=== PATIENT | female | born 1980 | race Caucasian/White ===

== ENCOUNTER → 2020-09-23 08:20 | Outpatient (CLI) | payer BC, SELFPAY ==
[2020-09-23 09:55] LABS: Basophils % 0.5 % (0.1-2.0); Eosinophils # 0.1 K/mm3 (0.0-0.4); Hematocrit 48.1 % (37.0-47.0); Hemoglobin 15.8 g/dL (12.2-16.2); Lymphocytes # 2.1 K/mm3 (0.7-4.5); Lymphocytes % 29.4 % (10-50); Mean Corpuscular HGB Conc 32.9 g/dL (31.8-35.4); Mean Corpuscular Hemoglobin 31.9 pg (27.0-31.2); Mean Corpuscular Volume 96.9 fl (81-99); Mean Platelet Volume 8.7 fl (7.4-10.4); Monocytes # 0.3 K/mm3 (0.1-1.0); Monocytes % 4.3 % (1.7-9.3); Neutrophils # 4.6 K/mm3 (1.8-7.8); Neutrophils % 63.8 % (37.0-80.0); Platelet Count 237 K/mm3 (142-424); Red Blood Count 4.96 M/mm3 (4.20-5.40); Red Cell Distribution Width 12.7 % (11.5-17.5); White Blood Count 7.2 K/mm3 (4.8-10.8)
[2020-09-23 10:57] LABS: Alanine Aminotransferase 18 U/L (12-78); Albumin Level 4.5 g/dl (3.5-5.0); Albumin/Globulin Ratio 1.5 (1.1-1.8); Alkaline Phosphatase 54 U/L (38-126); Anion Gap 14.4 mEq/L (5-15); Aspartate Amino Transferase 25 U/L (14-36); Bilirubin,Total 0.6 mg/dl (0.2-1.3); Blood Urea Nitrogen 12 mg/dl (7-17); Calcium 9.9 mg/dl (8.4-10.2); Carbon Dioxide 26 mmol/L (22.0-30.0); Chloride 103 mmol/L (98-107); Chol/HDL Ratio 4.5 (1-3.5); Cholesterol 232 mg/dl (140-200); Estimated Glomerular Filt Rate 94 ml/min (>60); GFR (African American) 113 ML/MIN (>60); Glucose 93 mg/dl (74-100); HDL Cholesterol 51 mg/dl (40-60); Potassium 4.4 mmoL/L (3.5-5.1); Sodium 139 mmol/L (136-145); Total Protein,Serum 7.5 g/dl (6.3-8.2); Triglycerides 193 mg/dl (30-150); VLDL Cholesterol 39 mg/dL (0-40)
[2020-09-23 11:07] LABS: HCG Qualitative, Serum Negative (Negative)
[2020-09-23 11:08] LABS: Direct LDL Cholesterol 139.63 mg/dL (100-129)
[2020-09-23 11:14] LABS: Free Thyroxine Index 2.3 ug/dL (5.93-13.13); T4 (Thyroxine) 8.5 ug/dl (5.53-11.0); Triiodothryronine (T3) Uptake 27 % (23.5-40.5)
[2020-09-23 11:28] LABS: Thyroid Stimulating Hormone 0.83 uIU/mL (0.465-4.68)
[2020-09-24 10:50] LABS: FSH 3.4 mIU/mL (.)
[2020-09-24 18:00] LABS: Rapid Plasma Reagin Ab Titer Non Reactive (NonRea<1:1)
[2020-09-25 08:08] LABS: Hep A Ab, IgM Negative (Negative); Hepatitis B Core Antibody IgM Negative (Negative); Hepatitis B Surface Antigen Negative (Negative)
[2020-09-25 15:15] LABS: HIV Screen 4th Generation wRfx Non Reactive (Non Reactive); Hepatitis C Antibody <0.1 s/co ratio (0.0-0.9)
[2020-09-25 15:16] LABS: HSV 2 IgG, Type Spec <0.91 index (0.00-0.90)
[2020-10-04 10:34] LABS: 1,25 Dihydroxy Vitamin D 56 pg/mL (.); 1,25-Dihydroxy, Vitamin D-2 <10 pg/mL (.); 1,25-Dihydroxy, Vitamin D-3 55 pg/mL (.)
== END ==
PROVIDERS: Visit Provider Nurse Practitioner Obstetrics & Gynecology
DX: Z01.419 Encounter for gynecological examination (general) (routine) without abnormal findings (principal); R53.82 Chronic fatigue, unspecified; Z72.51 High risk heterosexual behavior
CPT/HCPCS: 36415; 80053; 80061; 80074; 82652; 82670; 83001; 83002; 84436; 84443; 84479; 84703; 85025; 86592; 86695; 86703; 86790; G0432

== ENCOUNTER → 2021-02-20 12:28 | Outpatient (CLI) | payer BC, SELFPAY ==
--- NOTE | 2021-02-20 12:33 | XR_ITS ---
PROCEDURE: XR FOOT WT BEARING LT 3V CLINICAL INDICATION: pain COMPARISON: CR FTR3 FOOT-RT-3 VIEWS from 08/06/2014 CR FTR3 FOOT-RT-3 VIEWS from 08/23/2014 FINDINGS: No fracture or dislocation. No lytic or blastic change. There is normal mineralization. The joint spaces are well-preserved. No significant degenerative/arthritic changes. No erosive changes evident. Other findings:None. IMPRESSION: No acute findings. Dictated by: Albino Funes MD 02/20/2021 13:48 Albino Funes MD in [place] 02/20/2021 13:48
--- NOTE | 2021-02-20 12:33 | XR_ITS ---
PROCEDURE: XR ANKLE WT BEARING LT MIN 3V CLINICAL INDICATION: pain COMPARISON: CR ANKR3 ANKLE-RT-3 VIEWS from 08/06/2014 FINDINGS: Bones: No fracture or dislocation. No lytic or blastic change. There is normal mineralization. Joints: The joint spaces are well-preserved. No significant degenerative/arthritic changes. No erosive changes evident. Other findings:None. IMPRESSION: No acute findings. Dictated by: Albino Funes MD 02/20/2021 13:48 Albino Funes MD in [place] 02/20/2021 13:48
--- NOTE | 2021-02-20 12:33 | XR_ITS ---
PROCEDURE: XR ANKLE WT BEARING RT MIN 3V CLINICAL INDICATION: pain COMPARISON: CR ANKR3 ANKLE-RT-3 VIEWS from 08/06/2014 FINDINGS: Bones: No fracture or dislocation. No lytic or blastic change. There is normal mineralization. Joints: The joint spaces are well-preserved. No significant degenerative/arthritic changes. No erosive changes evident. Other findings:There is minimal hypertrophic change of the neck of the talus anteriorly. IMPRESSION: No acute findings. Dictated by: Albino Funes MD 02/20/2021 13:41 Albino Funes MD in [place] 02/20/2021 13:41
--- NOTE | 2021-02-20 12:33 | XR_ITS ---
PROCEDURE: XR FOOT WT BEARING RT 3V CLINICAL INDICATION: pain COMPARISON: CR FTR3 FOOT-RT-3 VIEWS from 08/06/2014 CR FTR3 FOOT-RT-3 VIEWS from 08/23/2014 FINDINGS: No fracture or dislocation. No lytic or blastic change. There is normal mineralization. Minimal hypertrophic change along the neck of the talus anteriorly and minimal spurring along the anterior and proximal aspect of the navicular. Normal alignment. Other findings:None. IMPRESSION: Mild degenerative changes not significantly changed Dictated by: Albino Funes MD 02/20/2021 13:44 Albino Funes MD in [place] 02/20/2021 13:44
== END ==
PROVIDERS: PCP Family Medicine; Visit Provider Podiatrist
DX: M25.572 Pain in left ankle and joints of left foot (principal); M25.571 Pain in right ankle and joints of right foot
CPT/HCPCS: 73610; 73630

== ENCOUNTER → 2022-04-13 10:14 | Outpatient (CLI) | payer BC, OTHER, SELFPAY ==
[2022-04-13 11:38] LABS: Basophils % 0.3 % (0.1-2.0); Eosinophils # 0.1 K/mm3 (0.0-0.4); Eosinophils % 1.3 % (0.1-12.0); Hemoglobin 13.5 g/dL (12.2-16.2); Lymphocytes # 1.8 K/mm3 (0.7-4.5); Lymphocytes % 22.8 % (10-50); Mean Corpuscular HGB Conc 33.9 g/dL (31.8-35.4); Mean Corpuscular Hemoglobin 31.1 pg (27.0-31.2); Mean Corpuscular Volume 91.7 fl (81-99); Mean Platelet Volume 8.5 fl (7.4-10.4); Monocytes # 0.4 K/mm3 (0.1-1.0); Neutrophils # 5.6 K/mm3 (1.8-7.8); Neutrophils % 70.6 % (37.0-80.0); Platelet Count 222 K/mm3 (142-424); Red Blood Count 4.36 M/mm3 (4.20-5.40); Red Cell Distribution Width 12.2 % (11.5-17.5)
[2022-04-13 12:14] LABS: Alanine Aminotransferase 13 U/L (12-78); Albumin/Globulin Ratio 1.7 (1.1-1.8); Alkaline Phosphatase 49 U/L (38-126); Anion Gap 9.1 mEq/L (5-15); Aspartate Amino Transferase 19 U/L (14-36); Bilirubin,Total 0.8 mg/dl (0.2-1.3); Blood Urea Nitrogen 14 mg/dl (7-17); Calcium 9.1 mg/dl (8.4-10.2); Carbon Dioxide 27 mmol/L (22.0-30.0); Chloride 106 mmol/L (98-107); Chol/HDL Ratio 4.3 (1-3.5); Cholesterol 165 mg/dl (140-200); Estimated Glomerular Filt Rate 111 ml/min (>60); GFR (African American) 135 ML/MIN (>60); Globulin 2.4 g/dL (1.3-3.2); Glucose 85 mg/dl (74-100); HDL Cholesterol 38 mg/dl (40-60); Potassium 4.1 mmoL/L (3.5-5.1); Sodium 138 mmol/L (136-145); Total Protein,Serum 6.4 g/dl (6.3-8.2); Triglycerides 103 mg/dl (30-150); VLDL Cholesterol 21 mg/dL (0-40)
[2022-04-13 12:25] LABS: Direct LDL Cholesterol 95.76 mg/dL (100-129)
[2022-04-13 12:29] LABS: 25-OH Vitamin D, Total 42.7 ng/mL (30-100)
[2022-04-13 12:45] LABS: Thyroid Stimulating Hormone 0.68 uIU/mL (0.465-4.68)
== END ==
PROVIDERS: PCP Family Medicine; Visit Provider Family Medicine
DX: G43.909 Migraine, unspecified, not intractable, without status migrainosus (principal); E55.9 Vitamin D deficiency, unspecified; R63.4 Abnormal weight loss
CPT/HCPCS: 36415; 80053; 80061; 82306; 84443; 85025

== ENCOUNTER → 2022-07-05 08:00 | Outpatient (CLI) | payer BC, SELFPAY ==
[2022-07-05 09:39] LABS: Basophils % 0.5 % (0.1-2.0); Eosinophils # 0.1 K/mm3 (0.0-0.4); Eosinophils % 1.4 % (0.1-12.0); Hematocrit 39.9 % (37.0-47.0); Hemoglobin 13.2 g/dL (12.2-16.2); Lymphocytes # 1.3 K/mm3 (0.7-4.5); Lymphocytes % 25.9 % (10-50); Mean Corpuscular HGB Conc 33.1 g/dL (31.8-35.4); Mean Corpuscular Volume 96.7 fl (81-99); Mean Platelet Volume 8.9 fl (7.4-10.4); Monocytes # 0.2 K/mm3 (0.1-1.0); Monocytes % 4.6 % (1.7-9.3); Neutrophils # 3.3 K/mm3 (1.8-7.8); Neutrophils % 67.6 % (37.0-80.0); Platelet Count 246 K/mm3 (142-424); Red Blood Count 4.13 M/mm3 (4.20-5.40); Red Cell Distribution Width 12.5 % (11.5-17.5); White Blood Count 4.9 K/mm3 (4.8-10.8)
[2022-07-05 10:36] LABS: Chloride 103 mmol/L (98-107); Potassium 4.6 mmoL/L (3.5-5.1); Sodium 139 mmol/L (136-145)
[2022-07-05 10:39] LABS: Alanine Aminotransferase 17 U/L (12-78); Albumin Level 4.1 g/dl (3.5-5.0); Albumin/Globulin Ratio 1.9 (1.1-1.8); Alkaline Phosphatase 37 U/L (38-126); Anion Gap 14.6 mEq/L (5-15); Aspartate Amino Transferase 24 U/L (14-36); Bilirubin,Total 0.7 mg/dl (0.2-1.3); Blood Urea Nitrogen 16 mg/dl (7-17); Carbon Dioxide 26 mmol/L (22.0-30.0); Cholesterol 188 mg/dl (140-200); Estimated Glomerular Filt Rate 93 ml/min (>60); GFR (African American) 112 ML/MIN (>60); Globulin 2.2 g/dL (1.3-3.2); Total Protein,Serum 6.3 g/dl (6.3-8.2); Triglycerides 87 mg/dl (30-150); VLDL Cholesterol 17 mg/dL (0-40)
[2022-07-05 10:40] LABS: Calcium 8.8 mg/dl (8.4-10.2); Glucose 81 mg/dl (74-100); HDL Cholesterol 47 mg/dl (40-60)
[2022-07-05 10:51] LABS: Direct LDL Cholesterol 101.76 mg/dL (100-129)
[2022-07-05 10:57] LABS: Triiodothryronine (T3) Uptake 32 % (23.5-40.5)
[2022-07-05 10:58] LABS: T4 (Thyroxine) 6.4 ug/dl (5.53-11.0)
[2022-07-05 11:11] LABS: Thyroid Stimulating Hormone 0.52 uIU/mL (0.465-4.68)
[2022-07-06 10:10] LABS: Rapid Plasma Reagin Ab Titer Non Reactive (NonRea<1:1)
[2022-07-12 04:10] LABS: 1,25 Dihydroxy Vitamin D 44 pg/mL (.); 1,25-Dihydroxy, Vitamin D-2 <10 pg/mL (.); 1,25-Dihydroxy, Vitamin D-3 41 pg/mL (.)
[2022-07-31 11:53] LABS: FSH 3.4
[2022-07-31 11:54] LABS: Hep A Ab, IgM NEGATIVE; Hepatitis B Core Antibody IgM NEGATIVE; Hepatitis B Surface Antigen NEGATIVE; Hepatitis C Antibody <0.1
[2022-07-31 11:55] LABS: HIV Screen 4th Generation wRfx NON REACTIVE
== END ==
PROVIDERS: PCP Family Medicine; Visit Provider Nurse Practitioner Obstetrics & Gynecology
DX: Z00.00 Encounter for general adult medical examination without abnormal findings (principal); Z72.51 High risk heterosexual behavior; E66.9 Obesity, unspecified; Z68.31 Body mass index [BMI] 31.0-31.9, adult; Z11.4 Encounter for screening for human immunodeficiency virus [HIV]
CPT/HCPCS: 36415; 80053; 80061; 80074; 82652; 82670; 83001; 83002; 84436; 84443; 84479; 85025; 86592; 86703; G0432

== ENCOUNTER → 2023-08-26 11:44 | Outpatient (CLI) | payer OTHER, SELFPAY | PROVIDERS: PCP Family Medicine; Visit Provider Nurse Practitioner Family | DX: B34.9 Viral infection, unspecified (principal) | CPT/HCPCS: 87807 ==

== ENCOUNTER 2025-01-14 07:16 | Outpatient (CLI) | payer OTHER, SELFPAY ==
[2025-01-14 08:17] LABS: Alanine Aminotransferase 18 U/L (12-78); Albumin Level 3.8 g/dl (3.5-5.0); Albumin/Globulin Ratio 1.5 (1.1-1.8); Alkaline Phosphatase 57 U/L (38-126); Anion Gap 6.3 mEq/L (5-15); Aspartate Amino Transferase 20 U/L (14-36); Bilirubin,Total 0.3 mg/dl (0.2-1.3); Blood Urea Nitrogen 11 mg/dl (7-17); Calcium 9.7 mg/dl (8.4-10.2); Carbon Dioxide 28 mmol/L (22.0-30.0); Chloride 110 mmol/L (98-107); Chol/HDL Ratio 4.4 (1-3.5); Cholesterol 222 mg/dl (140-200); Estimated Glomerular Filt Rate 92 ml/min (>60); GFR (African American) 111 ML/MIN (>60); Globulin 2.6 g/dL (1.3-3.2); Glucose 96 mg/dl (74-100); HDL Cholesterol 51 mg/dl (40-60); Potassium 4.3 mmoL/L (3.5-5.1); Sodium 140 mmol/L (136-145); Total Protein,Serum 6.4 g/dl (6.3-8.2); Triglycerides 117 mg/dl (30-150); VLDL Cholesterol 23 mg/dL (0-40)
[2025-01-14 08:27] LABS: Direct LDL Cholesterol 134.36 mg/dL (100-129)
[2025-01-14 08:33] LABS: 25-OH Vitamin D, Total 29.8 ng/mL (30-100)
[2025-01-14 10:18] LABS: Iron 47 ug/dL (37-170)
== END 2025-01-14 23:59 | disposition home or self-care (01) ==
PROVIDERS: PCP Physician Assistant; Visit Provider Physician Assistant
DX: Z13.220 Encounter for screening for lipoid disorders (principal); G43.909 Migraine, unspecified, not intractable, without status migrainosus; E55.9 Vitamin D deficiency, unspecified; E61.1 Iron deficiency
CPT/HCPCS: 36415; 80053; 80061; 82306; 83540; 84443

== ENCOUNTER 2025-05-18 09:35 | Outpatient (CLI) | payer OTHER, SELFPAY ==
--- OUTSIDE RECORDS SUMMARY | 2025-01-13 06:15 | XMS_ITS ---
Author Organization [facility] Address [address] [place] [id number] Care Team Providers Care Tribal Judge Name Role Phone Allison Craft Primary Care Provider Neetu Crain Unavailable [phone] Allergies No Known Allergies Results Component Value Reference Range Notes CBC Fingerstick (in house) Reviewed date:01/13/2025 01:23:07 PM Interpretation: Performing Lab: Notes/Report: wbc 10.9 3.5 - 10 lym 14.8 15 - 50 mid 4.5 2 - 15 gran 80.7 35 - 80 rbc 4.81 3.5 - 5.5 hgb 14.3 11.5 - 16.5 hct 43.2 35 - 55 mcv 90.0 75 - 100 mch 29.8 25 - 35 mchc 33.1 31 - 38 plat 231 100 - 400 H-TSH Reviewed date:01/14/2025 02:09:07 PM Interpretation: Performing Lab: Notes/Report: TSH 1.00 0.465-4.68 uIU/mL H-VITAMIN D Reviewed date:01/14/2025 02:09:07 PM Interpretation: Performing Lab: Notes/Report: TVITD 29.8 30-100 ng/mL Deficient <20 ng/mL Insufficient 20-30 ng/mL Sufficient 30-100 ng/mL Potential Toxicity >100 ng/mL H-Lipid Panel Reviewed date:01/14/2025 02:09:07 PM Interpretation: Performing Lab: Notes/Report: Patient Fasting? Y TRIG 117 30-150 mg/dl CHOL 222 140-200 mg/dl DLDL 134.36 100-129 mg/dL VLDL 23 0-40 mg/dL HDL 51 40-60 mg/dl CHLHDL 4.4 1-3.5 H-CMP Reviewed date:01/14/2025 02:09:07 PM Interpretation: Performing Lab: Notes/Report: NA 140 136-145 mmol/L K 4.3 3.5-5.1 mmoL/L CL 110 98-107 mmol/L CO2 28 22.0-30.0 mmol/L GAP 6.3 5-15 mEq/L BUN 11 7-17 mg/dl CREATT 0.70 0.52-1.04 mg/dl GFRAA 111 >60 ML/MIN EGFR 92 >60 ml/min GLU 96 74-100 mg/dl CA 9.7 8.4-10.2 mg/dl BILIT 0.3 0.2-1.3 mg/dl AST 20 14-36 U/L ALT 18 12-78 U/L TP 6.4 6.3-8.2 g/dl ALB 3.8 3.5-5.0 g/dl GLOB 2.6 1.3-3.2 g/dL AGRATIO 1.5 1.1-1.8 ALP 57 38-126 U/L H-Iron Reviewed date:01/14/2025 02:09:07 PM Interpretation: Performing Lab: Notes/Report: FE 47 37-170 ug/dL REASON FOR VISIT med check Medications Medication SIG (Take, Route, Frequency, Duration) Notes Start Date End Date Status Bromfed DM 2-30-10 MG/5ML 5-10 mL Orally four times a day, prn 01/13/2025 Active SUMAtriptan Succinate 100 MG TAKE ONE TABLET BY MOUTH AT LEAST 2 HOURS BETWEEN DOSES NEEDED TWICE DAILY Orally once daily, prn Active Cefdinir 300 MG 1 cap(s) Orally Two times a day; Duration: 10 days 01/13/2025 Active tiZANidine HCl 4 MG Take 2 tablets by mo uth twice daily; Duration: 90 days Active hydrOXYzine Pamoate 25 MG Take 1 capsule by mouth three times daily as needed; Duration: 20 days Active risperiDONE 1 MG 1 tab(s) Orally bid Active ZyrTEC Allergy 10 MG 1 tablet Orally Once a day Active Magnesium Oxide 400 MG 1 tab(s) orally once a day Active Vitamin D (Ergocalciferol) 1.25 MG (54107 UT) 1 cap(s) orally once a month Active Multivitamin - 1 tab(s) orally once a day Active Albuterol Sulfate HFA 108 (90 Base) MCG/ACT 1 puff as needed Inhalation every 4 hrs, prn 01/13/2025 Active Invega Sustenna 234 MG/1.5ML 1.5 mL Intramuscular Active Vital Signs Blood pressure systolic 120 mm Hg 01/14/20 25 Blood pressure diastolic 86 mm Hg 025 Heart Rate 93 /min 01/13/2025 Height 65 in 01/13/2025 Weight 213.8 lbs 01/13/2025 BMI 35.57 kg/m2 01/13/2025 Encounters Encounter Location Date Provider Diagnosis [facility] [address] [place], [place] [id number] 01/13/2025 Neetu Crain Acute URI J06.9 ; Bronchitis J40 ; Screening, lipid Z13.220 ; Migraine headache G43.909 ; Generalized anxiety disorder F41.1 ; Lipid screening Z13.220 ; Vitamin D deficiency E55.9 ; Iron deficiency E61.1 and 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 Assessments Encounter Date Diagnosis (ICD Code) Assessment Notes Treatment Notes Treatment Clinical Notes Section Notes 01/13/2025 Acute URI (ICD-10 - J06.9) 01/13/2025 Bronchitis (ICD-10 - J40) 01/13/2025 Screening, lipid (ICD-10 - Z13.220) 01/13/2025 Migraine headache (ICD-10 - G43.909) 01/13/2025 Generalized anxiety disorder (ICD-10 - F41.1) 01/13/2025 Lipid screening (ICD-10 - Z13.220) 01/13/2025 Vitamin D deficiency (ICD-10 - E55.9) 01/13/2025 Iron deficiency (ICD-10 - E61.1) 01/13/2025 Fibromyositis (ICD-10 - M79.7) Plan Of Treatment Medication Medication Name Sig Start Date Stop Date Notes Bromfed DM 2-30-10 MG/5ML 5-10 mL Orally four times a day, prn 01/13/2025 SUMAtriptan Succinate 100 MG TAKE ONE TA BLET BY MOUTH AT LEAST 2 HOURS BETWEEN DOSES NEEDED TWICE DAILY Orally once daily, prn Cefdinir 300 MG 1 cap(s) Orally Two times a day; Duration: 10 days 01/13/2025 tiZANidine HCl 4 MG Take 2 tablets by [facility] twice daily; Duration: 90 days hydrOXYzine Pamoate 25 MG Take 1 capsule by mouth three times daily as needed; Duration: 20 days Albuterol Sulfate HFA 108 (9 0 Base) MCG/ACT 1 puff as needed Inhalation every 4 hrs, prn 01/13/2025 Next Appt Details Follow Up: via phone to repo rt test results, Reason: Provider Name:Neetu Scott y, 05/18/2025 09:00:00 AM, [address] [facility] [address], [place], [id number], Progress Notes * LILIAN DUENAS ANNDOB:[birth year] (44 yo F)Acc No.[id number]:01/13/2025 Progress Notes Patient: LILIAN EDMOND Provider: HALEY Negron :1980 A ge:44 Y S ex:Female Date:01/13/2025 Address:[place] [address], [facility], [place] [id number] Pcp:Allison Craft Subjective: * Chief Complaints: * 1 . Med check. * HPI: H PI: 44 year old female presents with c/o Patient is here today for?Pt is here today for a medication check and refills. Pt sts the last check up she had she was suppose to have lab work, and sts she would like that done today. E NT/respiratory: c/o cough P t sts she has been coughing and feeling like she has a cold. Pt sts this morning she was coughing up white colored phlem. c/o nasal congestion P t sts she did get tested last week for flu and covid and sts they came back negative. Denies : sore throat. D enies : Fever. * ROS: D ERMATOLOGY: no R karla. n o H hailey. G ASTROENTEROLOGY: no N ausea. n o V omiting. n o D iarrhea.? U ROLOGY: no D ifficulty urinating. n o B lood in urine. * Medical History: M igraine Headache, Miscarriage 2009. * Surgical History: B ilateral CTS/ Dr. Gomez 09/2019. * Hospitalization/Major Diagno stic Procedure: H hailey- [facility] ER 10/30/2013, Restless Legs- [facility] ER 05/2014, Fell in [facility] ER 07/08/2020. * Family History: F ather: alive, diabetes. M other: alive. P aternal Grand Father: , diabetes.?Paternal Grand Mother: alive. M aternal Grand Father: . M aternal Grand Mother: alive, hypertension, diabetes. 1 brother(s) , 3 sister(s) . . Sister with cervical cancer. * Social History: C URRENT TOBACCO USE S moking Status: Patient does NOT smoke. C affeine: yes, frequency:. Exercise: no. Home smoke detector use: yes. Marital Status: Single. 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 Past smoking status: no. Recreational drug use: no. Alcohol: Type: , Frequency: ,Years: , Determination:. Sexually active: yes. * Medications: T aking Invega Sustenna 234 MG/1.5ML Suspension Prefilled Syringe 1.5 mL Intramuscular , Taking risperiDONE 1 MG Tablet 1 tab(s) Orally bid , Taking ZyrTEC Allergy 10 MG Tablet 1 tablet Orally Once a day , Taking Vitamin D (Ergocalciferol) 1.25 MG (45557 UT) Capsule 1 cap(s) orally once a month , Taking Multivitamin - Tablet 1 tab(s) orally once a day , Taking Magnesium Oxide 400 MG Tablet 1 tab(s) orally once a day , Taking tiZANidine HCl 4 MG Tablet Take 2 tablets by mouth twice daily , Taking SUMAtriptan Succinate 100 MG Tablet TAKE ONE TABLET BY MOUTH AT LEAST 2 HOURS BETWEEN DOSES NEEDED TWICE DAILY , Taking hydrOXYzine Pamoate 25 MG Capsule Take 1 capsule by mouth three times daily as needed , Medication List reviewed and reconciled with the patient * Allergies: N .K.D.A. Objective: * Vitals: W t: 213.8, Temp: 97.6, BP: 120/86, HR: 93, O2 Sat: 95% on RA, Nurse: benson, Ht: 65, BMI:35.57. * Examination: G eneral Examination: General Appearance: N AD. H EENT: s clera and conjunctiva clear, PERRLA, TM's normal, translucent, nose congested. O ral cavity: n o lesions, mucosa moist and WNL, no erythema. N aron: s upple, no lymphadenopathy. C hest: n ormal shape and expansion. H eart: R SR. L ungs: b ilateral wheezes, no rales. A bdomen: b owel sounds present , soft and nontender. N eurologic Exam: I ntact, gait normal. S kin: n ormal, no rash. P eripheral pulses: n ormal (2+) bilaterally. E xtremities: n o leg edema. Assessment: * Assessment: 1. A cute URI - J06.9 (Primary) 2 . B ronchitis - J40 3 .?Screening, lipid - Z13.220 4 . M igraine headache - G43.909 5 . G eneralized anxiety disorder - F41.1 6 . L ipid screening - Z13.220 7. V itamin D deficiency - E55.9 8 . I dustin deficiency - E61.1? 9. 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 2.?Bronchitis? Start Bromfed DM Syrup, 2-30-10 MG/5ML, 5-10 mL, Orally, four times a day, prn, 240 mL, Refills 1; Start Albuterol Sulfate HFA Aerosol Solution, 108 (90 Base) MCG/ACT, 1 puff as needed, Inhalation, every 4 hrs, prn, 1, Refills 1.?? 3.?Screening, lipid?LAB: H-Lipid Panel (Collection Date & Time - 01/14/2025 07:20 AM)* Value Reference Range T RIG 117 30-150 - mg/dl * C HOL 222 H 140-200 - mg/dl * D LDL 134.36 H 100-129 - mg/dL * V LDL 23 0-40 - mg/dL * H DL 51 40-60 - mg/dl * C HLHDL 4.4 H 1-3.5 - * Neetu Crain 01/14/2025 02 :09:01 PM >see TE 4.?Migraine headache? Refill SUMAtriptan Succinate Tablet, 100 MG, TAKE ONE TABLET BY MOUTH AT LEAST 2 HOURS BETWEEN DOSES NEEDED TWICE DAILY, Orally, once daily, prn, 9, Refills 5.?LAB: H-TSH (Collection Date & Time - 01/14/2025 07:20 AM)* Value Reference Range T SH 1.00 0.465-4.68 - uIU/mL * Neetu Crain 01/14/2025 02 :09:01 PM >see TE ?LAB: H-CMP (Collection Date & Time - 01/14/2025 07:20 AM)* Value Reference Range N A 140 136-145 - mmol/L * K 4.3 3.5-5.1 - mmoL/L * C L 110 H 98-107 - mmol/L * C O2 28 22.0-30.0 - mmol/L * G AP 6.3 5-15 - mEq/L * B UN 11 7-17 - mg/dl * C REATT 0.70 0.52-1.04 - mg/dl * G FRAA 111 >60 - ML/MIN * E GFR 92 >60 - ml/min * G ANAYELI 96 74-100 - mg/dl * C A 9.7 8.4-10.2 - mg/dl * B ILIT 0.3 0.2-1.3 - mg/dl * A ST 20 14-36 - U/L * A LT 18 12-78 - U/L * T P 6.4 6.3-8.2 - g/dl * A LB 3.8 3.5-5.0 - g/dl * G LOB 2.6 1.3-3.2 - g/dL * A GRATIO 1.5 1.1-1.8 - * A LP 57 38-126 - U/L * Breann Neetu Erna 01/14/2025 02 :09:01 PM >see TE 5.?Generalized anxiety disorder? Refill hydrOXYzine Pamoate Capsule, 25 MG, Take 1 capsule by mouth three times daily as needed, 20 days, 60 Capsule, Refills 5.??6.?Vitamin D deficiency?LAB: H-VITAMIN D (Collection Date & Time - 01/14/2025 07:20 AM)* Value Reference Range T VITD 29.8 L 30-100 - ng/mL * Breann Neetu Umanzor 01/14/2025 02 :09:01 PM >see TE 7.?Iron deficiency?LAB: H-Iron (Collection Date & Time - 01/14/2025 07:20 AM)* Value Reference Range F E 47 37-170 - ug/dL * Breann Neetu Umanzor 01/14/2025 02 :09:01 PM >see TE 8.?Fibromyositis? Refill tiZANidine HCl Tablet, 4 MG, Take 2 tablets by mouth twice daily, 90 days, 360 Tablet, Refills 3.?? * Procedure Codes: 3 6416 CAPILLARY BLOOD DRAW, 87310 CBC WITH AUTO DIFF, 3074F SYST BP LT 130 MM HG, 3079F DIAST BP 80-89 MM HG * Follow Up: v ia phone to report test results * Images: Billing Information: * Visit Code: 67724 Office Visit, Est Pt., Level 4. * Procedure Codes: 43763 CAPILLARY BLOOD DRAW. 87113 CBC WITH AUTO DIFF. 3074F SYST BP LT 130 MM HG. 3079F DIAST BP 80-89 MM HG. * Electronic signature of HALEY Manriquez on 05/18/2025 at 09:50 AM EDT Sign off status: Pending * Provider: HALEY Negron Date: 0 01/13/2025 Generated for Printi ng/Faxing/eTransmitting on: 0 05/18/2025 09:50 AM EDT History and Physical Notes * HPI (History of Present Illness) Category Sub-Category Detail Notes Category Not es ENT/respiratory sore throat cough Pt sts she has been coughing and feeling like she has a cold. Pt sts this morning she was coughing up white colored phlem Fever nasal congestion Pt sts she did get t ested last week for flu and covid and sts they came back negative HPI Patient is here today for Pt is here today for a medication check and refills. Pt sts the last check up she had she was suppose to have lab work, and sts she would like that done today Examination Category Sub-Category Detail Notes Category Not es General Examination HEENT: sclera and c onjunctiva clear, PERRLA, TM's normal, translucent, nose congested Heart: RSR Lungs: bilateral wheezes, n o rales Abdomen: bowel sounds present , soft and nontender Extremities: no leg edema General Appearance: NAD Skin: normal, no rash Neurologic Exam: Intact, gait normal Neck: supple, no lymphaden opathy Oral cavity: no lesions, mucosa m oist and WNL, no erythema Peripheral pulses: normal (2+) bilatera lly Chest: normal shape and exp ansion
--- OUTSIDE RECORDS SUMMARY | 2025-03-30 05:30 | XMS_ITS ---
Author Organization [facility] Address [address] [place] [id number] Care Team Providers Care Sas Programmer Name Role Phone Allison Craft Primary Care Provider [phone] Neetu Crain Unavailable [phone] Allergies No Known Allergies Reason For Referral Diagnosis 1 Depression with anxi ety (F41.8) Referral Organization [facility] Referring Provider First Name Neetu Referring Provider Last Name Breann Referring Provider Speciality Physician Retail Selling Specialist Referred Provider Specialty Psychiatry General Notes Rosio Lama 2024 11:16:32 AM > [facility] Brynn 04/04/2025 10:37:54 AM > spoke with George; patient scheduled Referral Priority Routine REASON FOR VISIT Discuss Depression Medication Medications Medication SIG (Take, Route, Frequency, Duration) Notes Start Date End Date Status Albuterol Sulfate HFA 108 (90 Base) MCG/ACT 1 puff as needed Inhalation every 4 hrs, prn 01/13/2025 Active Vitamin D (Ergocalciferol) 1.25 MG (66663 UT) 1 cap(s) orally once a month Active hydrOXYzine Pamoate 25 MG Take 1 capsule by mouth three times daily as needed; Duration: 20 days Active Invega Sustenna 234 MG/1.5ML 1.5 mL Intramuscular Not-Peña ing tiZANidine HCl 4 MG Take 2 tablets by mo uth twice daily; Duration: 90 days Active risperiDONE 1 MG 1 tab(s) Orally bid Active ZyrTEC Allergy 10 MG 1 tablet Orally Onc e a day Active Multivitamin - 1 tab(s) orally once a day Active Magnesium Oxide 400 MG 1 tab(s) orally o nce a day Active SUMAtriptan Succinate 100 MG TAKE ONE TABLET BY MOUTH AT LEAST 2 HOURS BETWEEN DOSES NEEDED TWICE DAILY Orally once daily, prn Active Citalopram Hydrobromide 20 MG 1 tablet Orally Once a day; Duration: 30 days 03/30/2025 Active Problems Problem Type SNOMED Code ICD Code Onset Dates Problem Status W/U Status Risk Notes Problem Mixed anxiety and depressive disorder (277600701) Depression with anxiety (F41.8) Active confirmed Vital Signs Blood pressure systolic 126 mm Hg 03/30/20 25 Blood pressure diastolic 80 mm Hg 025 Heart Rate 86 /min 03/30/2025 Height 65 in 03/30/2025 Weight 228.6 lbs 03/30/2025 BMI 38.04 kg/m2 03/30/2025 Encounters Encounter Location Date Provider Diagnosis [place] [address] [place] [id number] 03/30/2025 Neetu Crain Depression with anxi ety F41.8 Assessments Encounter Date Diagnosis (ICD Code) Assessment Notes Treatment Notes Treatment Clinical Notes Section Notes 03/30/2025 Depression with anxiety (ICD-10 - F41.8) Will go ahead and start back on the citalopram. She would like to see [facility] behavioral health to get genetic testing. Will make referral. Plan Of Treatment Medication Medication Name Sig Start Date Stop Date Notes Citalopram Hydrobromide 20 MG 1 tablet O rally Once a day; Duration: 30 days 03/30/2025 Treatment Notes Assessment Notes Depression with anxiety Will go ahead an d start back on the citalopram. She would like to see [facility] behavioral health to get genetic testing. Will make referral. Referrals Referral Date Details 03/30/2025 03/30/2025 Next Appt Details Follow Up: 3 Weeks, Reason: Provider Name:Neetu Scott y, 05/18/2025 09:00:00 AM, [address], [place], [id number], Progress Notes * LILIAN DUENASDOB:[birth year] (44 yo F)Acc No.[id number]:03/30/2025 Progress Notes Patient: LILIAN EDMOND Provider: HALEY Negron :1980 A ge:44 Y S ex:Female Date:03/30/2025 Address: [address], [id number] Pcp:Allison Craft Subjective: * Chief Complaints: * 1 . Discuss Depression Medication. * HPI: P sychology: 44 year old female presents with c/o depression P t here to discuss depression medication. Pt states she been having trouble sleeping at times as well. She has a therapist at [facility] and they are weaning her off of her risperidone but they sent her to her PCP to start back on the citalopram and welbutrin. . * ROS: D ERMATOLOGY: no R karla. n o H hailey. G ASTROENTEROLOGY: no N ausea. n o V omiting. n o D iarrhea.? U ROLOGY: no D ifficulty urinating. n o B lood in urine. * Medical History: M igraine Headache, Miscarriage 2009. * Surgical History: B ilateral CTS/ Dr. Gomez 09/2019. * Hospitalization/Major Diagno stic Procedure: H hailey- [facility] 10/30/2013, Restless [place]s- [facility] 05/2014, Fell in [facility] ER 07/08/2020. * Family History: F [...] detector use: yes. Marital Status: Single. 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 Past smoking status: no. Recreational drug use: no. Alcohol: Type: , Frequency: ,Years: , Determination:. Sexually active: yes. * Medications: T aking risperiDONE 1 MG Tablet 1 tab(s) Orally bid , Taking ZyrTEC Allergy 10 MG Tablet 1 tablet Orally Once a day , Taking Multivitamin - Tablet 1 tab(s) orally once a day , Taking Magnesium Oxide 400 MG Tablet 1 tab(s) orally once a day , Taking SUMAtriptan Succinate 100 MG Tablet TAKE ONE TABLET BY MOUTH AT LEAST 2 HOURS BETWEEN DOSES NEEDED TWICE DAILY Orally once daily, prn , Taking tiZANidine HCl 4 MG Tablet Take 2 tablets by mouth twice daily , Taking Albuterol Sulfate HFA 108 (90 Base) MCG/ACT Aerosol Solution 1 puff as needed Inhalation every 4 hrs, prn , Taking Vitamin D (Ergocalciferol) 1.25 MG (92032 UT) Capsule 1 cap(s) orally once a month , Taking hydrOXYzine Pamoate 25 MG Capsule Take 1 capsule by mouth three times daily as needed , Not-Taking Invega Sustenna 234 MG/1.5ML Suspension Prefilled Syringe 1.5 mL Intramuscular , Medication List reviewed and reconciled with the patient * Allergies: N .K.D.A. Objective: * Vitals: W t: 228.6, Temp: 97.9, BP: 126/80, HR: 86, Nurse: suleman, Ht: 65, BMI:38.04. * Examination: P sychology: General Appearance: N AD. G rooming : a dequate.?Eye contact : richard iglesias. M ood : p lejony. H eart: R SR. L ungs: c lear to auscultation. N eurologic Exam: I ntact, gait normal. Assessment: * Assessment: 1. D epression with anxiety - F41.8 (Primary) Plan: * Treatment: * Procedure Codes: 1 036F TOBACCO NON-USER, 3074F SYST BP LT 130 MM HG, 3079F DIAST BP 80-89 MM HG, G8431 CLIN DEPRESSION SCREEN DOC positive, Modifiers: U8 * Follow Up: 3 Weeks * Images: Billing Information: * Visit Code: 33952 Office Visit, Est Pt., Level 3. * Procedure Codes: 1036F TOBACCO NON-USER. 3074F SYST BP LT 130 MM HG. 3079F DIAST BP 80-89 MM HG. G8431 CLIN DEPRESSION SCREEN DOC positive. Modifiers: U8 * Electronic signature of HALEY Manriquez on 05/18/2025 at 09:50 AM EDT Sign off status: Pending * Provider: HALEY Negron Date: 0 03/30/2025 Generated for Sixto enriquez/Sd/Katesmitting on: 0 05/18/2025 09:50 AM EDT History and Physical Notes * HPI (History of Present Illness) Category Sub-Category Detail Notes Category Not es Psychology depression Pt here to discu ss depression medication. Pt states she been having trouble sleeping at times as well. She has a therapist at [facility] and they are weaning her off of her risperidone but they sent her to her PCP to start back on the citalopram and welbutrin. Examination Category Sub-Category Detail Notes Category Not es Psychology Heart: RSR Lungs: clear to auscultatio n General Appearance: NAD Neurologic Exam: Intact, gait normal Grooming : adequate Eye contact : normal Mood : pleasant Consultation Request Notes Referral Date Referring Provider Referred Provider Not es 03/30/2025 Neetu Crain ,
--- OUTSIDE RECORDS SUMMARY | 2025-04-20 06:15 | XMS_ITS ---
[facility] Organization [facility] Address [address] [place] [id number] Care Team Providers Care Bobbin Collector Name Role Phone Allison Craft Primary Care Provider XiangNeetu page Unavailable [phone] Allergies No Known Allergies Results Component Value Reference Range Notes Genesight testing Reviewed date:05/06/2025 05:45:57 PM Interpretation:See Report Performing Lab: Notes/Report: See Report REASON FOR VISIT 3 week f/u due to have mamm please address Medications Medication SIG (Take, Route, Frequency, Duration) Notes Start Date End Date Status Vitamin D (Ergocalciferol) 1.25 MG (38343 UT) 1 cap(s) orally once a month Active Albuterol Sulfate HFA 108 (90 Base) MCG/ACT 1 puff as needed Inhalation every 4 hrs, prn 01/13/2025 Active tiZANidine HCl 4 MG Take 2 tablets by mo ut twice daily; Duration: 90 days Active Citalopram Hydrobromide 20 MG 1 tablet Orally Once a day Active SUMAtriptan Succinate 100 MG TAKE ONE TABLET BY MOUTH AT LEAST 2 HOURS BETWEEN DOSES NEEDED TWICE DAILY Orally once daily, prn Active Magnesium Oxide 400 MG 1 tab(s) orally o nce a day Active Multivitamin - 1 tab(s) orally once a day Active ZyrTEC Allergy 10 MG 1 tablet Orally Onc e a day Active Vraylar 1.5 MG 1 capsule Orally Onc e a day Active hydrOXYzine Pamoate 25 MG Take 1 capsule during the day, prn and 2 cap at bedtime Orally twice a day Active Problems Problem Type SNOMED Code ICD Code Onset Dates Problem Status W/U Status Risk Notes Problem Psychophysiologi rufino insomnia (F51.04) Active confirmed Vital Signs Blood pressure systolic 132 mm Hg 04/20/20 25 Blood pressure diastolic 80 mm Hg 025 Heart Rate 70 /min 04/20/2025 Height 65 in 04/20/2025 Weight 238 lbs 04/20/2025 BMI 39.6 kg/m2 04/20/2025 Encounters Encounter Location Date Provider Diagnosis TOPHERLakhwinderRobOdell [address] [facility] 36 [facility] [address] [place] [id number] 04/20/2025 Neetu Crain Depression with anxi ety F41.8 and Psychophysiological insomnia F51.04 Assessments Encounter Date Diagnosis (ICD Code) Assessment Notes Treatment Notes Treatment Clinical Notes Section Notes 04/20/2025 Depression with anxi ety (ICD-10 - F41.8) 04/20/2025 Psychophysiological insomnia (ICD-10 - F51.04) Plan Of Treatment Medication Medication Name Sig Start Date Stop Date Notes Citalopram Hydrobromide 20 MG 1 tablet Orally Once a day hydrOXYzine Pamoate 25 MG Take 1 capsule during the day, prn and 2 cap at bedtime Orally twice a day Next Appt Details Follow Up: 1 month, Reason: Provider Name:Neetu Erna Scott y, 05/18/2025 09:00:00 AM, [address] [facility] 36 [facility], [address], [place], [id number], Progress Notes * LILIAN DUENAS ANNDOB:[birth year] (44 yo F)Acc No.[id number]:04/20/2025 Patient: LILIAN EDMOND Provider: HALEY Negron :1980 A ge:44 Y S ex:Female Date:04/20/2025 Address: [address], [place] Pcp:Allison Craft Subjective: * Chief Complaints: * 1 . 3 week f/u due to have mamm please address. * HPI: P sychology: 44 year old female presents with c/o depression P t states she went to [facility] this morning for counseling. Pt states she is doing better. She was started on vraylar last week. Pt states she is having to take 2 hydroxyzine at night to sleep and would like rx increased.. * ROS: D ERMATOLOGY: no R karla. n o H hailey. G ASTROENTEROLOGY: no N ausea. n o V omiting. n o D iarrhea.? U ROLOGY: no D ifficulty urinating. n o B lood in urine. * Medical History: M igraine Headache, Miscarriage 2009. * Surgical History: B ilateral CTS/ Dr. Gomez 09/2019. * Hospitalization/Major Diagno stic Procedure: H hailey- [facility] ER 10/30/2013, Restless Legs- [facility] ER 05/2014, Fell in [facility] ER 07/08/2020. * Family History: F ather: [...] detector use: yes. Marital Status: Single. 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 Past smoking status: no. Recreational drug use: no. Alcohol: Type: , Frequency: ,Years: , Determination:. Sexually active: yes. * Medications: T aking Vraylar 1.5 MG Capsule 1 capsule Orally Once a day , Taking Citalopram Hydrobromide 20 MG Tablet 1 tablet Orally Once a day , Taking ZyrTEC Allergy 10 MG Tablet [...] , Taking Vitamin D (Ergocalciferol) 1.25 MG (56284 UT) Capsule 1 cap(s) orally once a month , Taking hydrOXYzine Pamoate 25 MG Capsule Take 1 capsule by mouth three times daily as needed , Discontinued Invega Sustenna 234 MG/1.5ML Suspension Prefilled Syringe 1.5 mL Intramuscular , Medication List reviewed and reconciled with the patient * Allergies: N .K.D.A. Objective: * Vitals: W t: 238, Temp: 97.6, BP: 132/80, HR: 70, Nurse: suleman, Ht: 65, BMI:39.6. * Examination: P sychology: General Appearance: N AD. G rooming : a dequate.?Eye contact : richard iglesias. M ood : p leasant. H eart: R SR. L ungs: c lear to auscultation. N eurologic Exam: I ntact, gait normal. Assessment: * Assessment: 1. D epression with anxiety - F41.8 (Primary) 2 . P sychophysiological insomnia - F51.04 Plan: * Treatment: 2.?Psychophysiological insomnia? Refill hydrOXYzine Pamoate Capsule, 25 MG, Take 1 capsule during the day, prn and 2 cap at bedtime,Orally, twice a day, 90, Refills 1.?? * Procedure Codes: 1 036F TOBACCO NON-USER, 3075F SYST BP GE 130 - 139MM HG, 3079F DIAST BP 80-89 MM HG * Follow Up: 1 month * Images: Billing Information: * Visit Code: 94304 Office Visit, Est Pt., Level 3. * Procedure Codes: 1036F TOBACCO NON-USER. 3075F SYST BP GE 130 - 139MM HG. 3079F DIAST BP 80-89 MM HG. * Electronic signature of HALEY Manriquez on 05/18/2025 at 09:50 AM EDT Sign off status: Pending * Provider: HALEY Negron Date: 0 04/20/2025 Generated for Sixto enriquez/Sd/Katlin on: 0 05/18/2025 09:50 AM EDT History and Physical Notes * HPI (History of Present Illness) Category Sub-Category Detail Notes Category Not es Psychology depression Pt states she we nt to [place] this morning for counseling. Pt states she is doing better. She was started on vraylar last week. Pt states she is having to take 2 hydroxyzine at night to sleep and would like rx increased. Examination Category Sub-Category Detail Notes Category Not es Psychology Heart: RSR Lungs: clear to auscultatio n General Appearance: NAD Neurologic Exam: Intact, gait normal Grooming : adequate Eye contact : normal Mood : pleasant
--- NOTE | 2025-05-18 09:38 | XR_ITS ---
FINAL REPORT CLINICAL HISTORY: .fall 11/09 COMPARISON: None FINDINGS: RIGHT HIP 4 views of the right hip demonstrate no acute fracture or dislocation. The joint spaces appear normal. The visualized bony structures are well aligned. No soft tissue abnormality is seen. IMPRESSION: No acute bony abnormality. Reviewed, Interpreted and Dictated by Darrell Leiva MD Transcribed by Arleth Bo Authenticated and [facility]
--- NOTE | 2025-05-18 09:38 | XR_ITS ---
FINAL REPORT TECHNIQUE: 5 views CLINICAL HISTORY: PAIN, ACUTE MIDLINE LBP W/O SCIATICA-- fall 11/10 COMPARISON: None FINDINGS: LUMBAR SPINE AP, oblique, and lateral views of the lumbar spine were obtained. There is no prior exam for comparison. There is no acute fracture or malalignment. Vertebral body height is preserved. Disc space height is preserved. No acute paraspinal abnormality. IMPRESSION: No acute process. Reviewed, Interpreted and Dictated by Darrell Leiva MD Transcribed by Arleth Bo Authenticated and [facility]
--- OUTSIDE RECORDS SUMMARY | 2025-05-18 09:50 | XMS_ITS | Patient Health Record ---
Author Organization [facility] Address [address] [place] [id number] Care Team Providers Care Platform Engineer Name Role Phone Allison Craft Primary Care Provider Neetu Crain Unavailable [phone] Allergies No Known Allergies Results Component Value Reference Range Notes Genesight testing Reviewed date:05/06/2025 05:45:57 PM Interpretation:See Report Performing Lab: Notes/Report: See Report CBC Fingerstick (in house) Reviewed date:01/13/2025 01:23:07 [...] Performing Lab: Notes/Report: FE 47 37-170 ug/dL Medications Medication SIG (Take, Route, Frequency, Duration) Notes Start Date End Date Status SUMAtriptan Succinate 100 MG TAKE ONE TABLET BY MOUTH AT LEAST 2 HOURS BETWEEN DOSES NEEDED TWICE DAILY Orally once daily, prn Active Medrol 4 MG as directed Orally 05/18/2025 Active Citalopram Hydrobromide 20 MG 1 tablet Orally Once a day Active Vitamin D (Ergocalciferol) 1.25 MG (68185 UT) 1 cap(s) orally once a month Active Albuterol Sulfate HFA 108 (90 Base) MCG/ACT 1 puff as needed Inhalation every 4 hrs, prn 01/13/2025 Active tiZANidine HCl 4 MG Take 2 tablets by mo uth twice daily; Duration: 90 days Active ZyrTEC Allergy 10 MG 1 tablet Orally Onc e a day Active Vraylar 1.5 MG 1 capsule Orally Onc e a day Active hydrOXYzine Pamoate 25 MG Take 1 capsule during the day, prn and 2 cap at bedtime Orally twice a day Active Magnesium Oxide 400 MG 1 tab(s) orally o nce a day Active Multivitamin - 1 tab(s) orally once a day Active Immunizations Vaccine Route Administration Date Status Comme nts DT, 7 YEARS OR OLDER Unknown 11/16/1996 Administered DT, 7 YEARS OR OLDER IM Intramuscular 11/28/2005 Administe red xFlu shot-36 months and older IM Intramuscular 08/10/2005 Administered Morphine 10mg/ml IM Intramuscular 05/01/2005 Administered Morphine 10mg/ml IM Intramuscular 03/24/2007 Administered Problems Problem Type SNOMED Code ICD Code Onset Dates Problem Status W/U Status Risk Notes Problem Migraine variants, not intractable (151304121) Migraine, other, without mention of intractable migraine (346.80) Active confirmed Problem Mixed anxiety and depressive disorder (124741952) Depression with anxiety (300.4) Active confirmed Problem Vitamin D deficiency (77909881) Vitamin D deficiency (E55.9) Active confirmed Problem Mixed anxiety and depressive disorder (186509542) Depression with anxiety (F41.8) Active confirmed Problem Intermenstrual bleeding - irregular (00498864) Menorrhagia with irregular cycle (N92.1) Active confirmed Problem Generalized anxiety disorder (05085137) Generalized anxiety disorder (F41.1) Active confirmed Problem Depression (672115842) Depression (F32.9) Active confirmed Problem Insomnia disorder related to another mental disorder (81677979) Psychophysiological insomnia (F51.04) Active confirmed Problem Sleep disorder (86534343) Sleep disorder (G47.9) Active confirmed Problem Migraine variant with headache (disorder) (512454706) Migraine headache (G43.909) Active confirmed Problem 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 Problem Bilateral carpal tunnel syndrome (098366706778401 01) Bilateral carpal tunnel syndrome (G56.03) Active confirmed Problem Irritable bowel syndrome (51440764) Irritable bowel syndrome with both constipation and diarrhea (K58.2) Active confirmed Vital Signs Heart Rate 66 /min 05/18/2025 Blood pressure diastolic 80 mm Hg 05/18/2025 Height 65 in 05/18/2025 Blood pressure systolic 130 mm Hg 05/18/2025 Weight 228.8 lbs 05/18/2025 BMI 38.07 kg/m2 05/18/2025 Encounters Encounter Location Date Provider Diagnosis Rachel [address] [facility] [address] [place] [id number] 01/13/2025 Neetu Crowkaylee Acute URI J06.9 ; Bronchitis J40 ; Screening, lipid Z13.220 ; Migraine headache G43.909 ; Generalized anxiety disorder F41.1 ; Lipid screening Z13.220 ; Vitamin D deficiency E55.9 ; Iron deficiency E61.1 and 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 [facility] [address] [place] [id number] 03/30/2025 Neetu Crowkaylee Depression with anxi ety F41.8 [facility] [address] [place] [id number] 04/20/2025 Neetu Crowdy Depression with anxi ety F41.8 and Psychophysiological insomnia F51.04 [facility] [address] [place] [id number] 05/18/2025 Neetu Crowkaylee Acute midline low ba ck pain without sciatica M54.50 ; Right hip pain M25.551 and Depression with anxiety F41.8 [facility] [address] [place] [id number] 04/18/2025 Allison Craft [facility] [address] [place] [id number] 01/14/2025 Neetu Xiangkaylee Generalized anxiety disorder F41.1 [facility] [address] [place] [address] [place] [id number] 05/03/2025 Allison Craft Assessments Encounter Date Diagnosis (ICD Code) Assessment Notes Treatment Notes Treatment Clinical Notes Section Notes 01/13/2025 Bronchitis (ICD-10 - J40) 01/13/2025 Acute URI (ICD-10 - J06.9) 01/14/2025 Generalized anxiety disorder (ICD-10 - F41.1) 03/30/2025 Depression with anxi ety (ICD-10 - F41.8) Will go ahead and start back on the citalopram. She would like to see [facility] behavioral health to get genetic testing. Will make referral. 04/20/2025 Depression with anxi ety (ICD-10 - F41.8) 04/20/2025 Psychophysiological insomnia (ICD-10 - F51.04) 05/18/2025 Right hip pain (ICD- 10 - M25.551) 05/18/2025 Acute midline low ba ck pain without sciatica (ICD-10 - M54.50) 05/18/2025 Depression with anxi ety (ICD-10 - F41.8) 01/13/2025 Screening, lipid (ICD-10 - Z13.220) 01/13/2025 Migraine headache (ICD-10 - G43.909) 01/13/2025 Generalized anxiety disorder (ICD-10 - F41.1) 01/13/2025 Lipid screening (ICD -10 - Z13.220) 01/13/2025 Vitamin D deficiency (ICD-10 - E55.9) 01/13/2025 Iron deficiency (ICD -10 - E61.1) 01/13/2025 Fibromyositis (ICD-1 0 - M79.7) Plan Of Treatment Pending Test Test Name Order Date X ray : Spine, lumbosacral 05/18/2025 X ray : Hip, right 05/18/2025 Next Appt Details Provider Name:Neetu Umanzor Sonia juarez, 05/18/2025 09:00:00 AM, [address] [facility] [address] [facility], [address], [place], [place], [id number], Insurance Providers Payer Name Payer Address Payer Phone Subscriber Number Group Number Insured Name Patient Relationship to Insured Coverage Start Date Coverage End Date [employer] [facility] [address] [place], [place] [id number] LILIAN DUENAS Self - patient is the insured Medications Administered Medication Instructions Date of Administration Dosage Notes Dexamethasone 12/27/2009 1CC Dexamethasone 11/01/2013 Dexamethasone 10/21/2014 1 mL Phenergan 12.5 mgs. IM 05/01/2005 25 mg Phenergan 12.5 mgs. IM 03/24/2007 stadol 08/12/2008 2 mg Vistaril 25 MGS. 08/12/2008 50 mg Medical (General) History Medical History History ICD Code Migraine Headache 2009 Surgical History Surgery Date(Month/Year) Bilateral CTS/ Dr. Gomez 09/2019 Hospitalization History Reason Date(Month/Year) Fell in [facility] ER 07/08/2020 Restless Legs- [facility] ER 05/2014 Hives- [facility] ER 10/30/2013
--- OUTSIDE RECORDS SUMMARY | 2025-05-18 09:50 | XMS_ITS | Encounter Summary ---
Author Organization Healthcare Address [address] [id number] Care Team Providers Care Cryptographic Vulnerability Analyst Name Role Phone Frederick Craft MD Primary Care Provider [phone]- [phone] Encounter Details Date Type Department Care Team (Late st Contact Info) Description 11/05/2024 Lab Requisition Formerly [facility] [address] [place] [address] Sabrina Olmos MD [address] [place], [place] [id number] Routine general medical examination at a health care facility Social History Tobacco Use Types Packs/Day Years Used Date Smoking Tobacco: Never Alcohol Use Standard Drinks/Week Comments No 0 (1 standard drink = 0.6 oz pur e alcohol) Comments Unknown Sex and Gender Information Value Date Recorded Sex Assigned at Not on file Legal Sex Female 6:51 PM EDT Gender Identity Not on file Sexual Orientation Not on file documented as of this encounter Plan of Treatment Not on file documented as of this encounter Procedures Procedure Name Priority Date/Time Associated Diagnosis Comments HEPATITIS B SURFACE ANTIGEN - [facility] Routine 11/05/2024 7:06 AM EST Routine general medical examination at a health care facility HEPATITIS C ANTIBODY WITH REFLEX TO HCV QUANT PCR - ES Routine 11/05/2024 7:06 AM EST Routine general medical examination at a health care facility HIV 1/2 ANTIBODY/ANTIGEN SCREEN W/REFLEX TO HIV 1/2 ANTIBODY DIFFERENTIATION Routine 11/05/2024 7:06 AM EST Routine general medical examination at a health care facility HIV 1/2 ANTIBODY/ANTIGEN SCREEN WITH REFLEX TO HIV I/II DIFFERENTIATION Routine 11/05/2024 7:06 AM EST Routine general medical examination at a health care facility SERUM DRUG SCREEN Routine 11/05/2024 7:0 6 AM EST Routine general medical examination at a [facility] care facility CBC WITH AUTO DIFFERENTIAL Routine 11/05/2024 7:06 AM EST Routine general medical examination at a [facility] facility TEST QUALITATIVE PLASMA Routine 11/05/2024 7:06 AM EST Routine general medical examination at a [facility] facility TSH Routine 11/05/2024 7:06 AM EST Routine general medical examination at a [facility] facility FREE T4, PLASMA Routine 11/05/2024 7:06 AM EST Routine general medical examination at a [facility] care facility HEMOGLOBIN A1C Routine 11/05/2024 7:06 AM EST Routine general medical examination at a [facility] care facility LIPID PROFILE, PLASMA Routine 11/05/2024 7:06 AM EST Routine general medical examination at a [facility] facility COMPREHENSIVE METABOLIC PANEL, PLASMA Routine 11/05/2024 7:06 AM EST Routine general medical examination at a [facility] care facility documented in this encounter Results * HIV 1 & 2 Antibody/Antigen Screen (11/05/2024 7:06 AM EST) HIV 1 & 2 Antibody/Antigen Screen Non Reactive Non Reactive 11/05/2024 10:14 AM EST [facility] Comment:Screening for HIV 1 & 2 antibodies, and P24 antigen is NONREACTIVE. No confirmatory testing is required. Blood Venous blood specimen / Unknown Venipuncture / Unknown 11/05/2024 7:06 AM EST 11/05/2024 8:16 AM EST us Sabrina Avila MD LAB BLOOD ORDERABLES Fi nal Result Performing Organization Address City/[facility]/ZIP Co de Phone Number [facility]ALTHCARE [facility] [address] [place] [address] * hCG, serum, qualitative (11/05/2024 7:06 AM EST) Test Negative Negative 11/05/2024 10:18 AM EST [facility] Blood Venous blood specimen / Unknown Venipuncture / Unknown 11/05/2024 7:06 AM EST 11/05/2024 8:13 AM EST Narrative [facility] - 11/05/2024 10:18 AM EST Reference Range: Males and non- females: Negative. Sabrina Avila MD LAB BLOOD ORDERABLES Fi nal Result Performing Organization Address [facility] Co de Phone Number [facility] [address] [place] [address] * TSH (11/05/2024 7:06 AM EST) Thyroid Stimulating Hormone, Plasma 0.49 0.40 - 4.20 uIU/mL 11/05/2024 10:18 AM EST [facility] Blood Venous blood specimen / Unknown Venipuncture / Unknown 11/05/2024 7:06 AM EST 11/05/2024 8:13 AM EST Narrative [facility]ARE [facility] - 11/05/2024 10:18 AM EST Trimester Specific Ranges TSH ( IU/mL) 1st Trimester 0.1 - 3.0 2nd Trimester 0.19 - 4.06 3rd Trimester 0.3 - 3.7 Sabrina Avila MD LAB BLOOD ORDERABLES Fi nal Result Performing Organization Address City/[facility] Co de Phone Number [facility]ARE [facility] [address] [place] [address] * T4, free (11/05/2024 7:06 AM EST) Free T4, Plasma 1.2 0.8 - 1.7 ng/dL 11/05/2024 10:18 AM EST [facility] Blood Venous blood specimen / Unknown Venipuncture / Unknown 11/05/2024 7:06 AM EST 11/05/2024 8:13 AM EST Narrative [facility] - 11/05/2024 10:18 AM EST Free T4 Trimester Specific Ranges 1st Trimester 0.9 - 1.50 ng/dL 2nd Trimester 0.7 - 1.40 ng/dL 3rd Trimester 0.7 - 1.24 ng/dL Sabrina Avila MD LAB BLOOD ORDERABLES Fi nal Result [facility] [address] [place] [address] * Hemoglobin A1c (11/05/2024 7:06 AM EST) Hemoglobin A1c 5.0 <5.7 % 11/05/2024 11:58 AM EST [facility] Blood Venous blood specimen / Unknown Venipuncture / Unknown 11/05/2024 7:06 AM EST 11/05/2024 7:52 AM EST Narrative [facility] - 11/05/2024 11:58 AM EST HA1C Interpretive Data: Diagnosis of Diabetes: Diabetic > or = 6.5% Pre-diabetic 5.7 to 6.4% Non-diabetic < or = 5.6% Glycemic Targets for Type I and Type II Diabetics: Non- Adults <7.0% Adults <6.0% Children and Adolescents <7.5% Source: [place] [employer]. Standards of medical care in diabetes,2017. Diabetes Care.2017:40 (suppl 1):S1-S135. HbA1c assay performed by an ion-exchange chromatography method that is certified traceable to the DCCT. Sabrina Avila MD LAB BLOOD ORDERABLES Fi nal Result [facility] [address] [place] [address] * (ABNORMAL) Lipid panel (11/05/2024 7:06 AM EST) Cholesterol, Plasma 147 <200 mg/dL 11/05/2024 10:18 AM EST [facility] Comment: Cholesterol Reference Range (age >17 years): Desirable <200 mg/dL Borderline 200 to 239 mg/dL Undesirable >239 mg/dL HDL 44(L) >=50 mg/dL 11/05/2024 10:18 AM EST [facility] Comment: HDL Cholesterol Reference Ranges (age >17 years): Female, acceptable > or = 50 mg/dL Male, acceptable > or = 40 mg/dL Triglycerides, Plasma 81 <150 mg/dL 11/05/2024 10:18 AM EST [facility] Comment: Triglyceride Reference Range (age >17 years): Desirable: <150 mg/dL Borderline high: 150 to 199 mg/dL High: 200 to 499 mg/dL Very high: >499 mg/dL Increased risk of pancreatitis: >1000 mg/dL Cholesterol/HDL Ratio 3 11/05/2024 10:18 AM EST [facility] LDL, Calculated 87 <100 mg/dL 10:18 AM EST [facility] Comment: LDL Cholesterol Reference Range (age >17 years): Optimal: <100 mg/dL Near or above optimal: 100 - 129 mg/dL Borderline high: 130 - 159 mg/dL High: 160 - 189 mg/dL Very high: >189 mg/dL LDL Cholesterol Reference Range (age <18 years): Desirable: <110 mg/dL Borderline: 110 - 129 mg/dL Undesirable: >130 mg/dL LDL Cholesterol is calculated using the Kong/NIH equation. Fasting greater than or equal to 12 hours? Unknown 11/05/2024 10:18 AM EST [facility] Blood Venous blood specimen / Unknown Venipuncture / Unknown 11/05/2024 7:06 AM EST 11/05/2024 8:13 AM EST us Sabrina Avila MD LAB BLOOD ORDERABLES Fi nal Result [facility] [address] [place] [id number] * (ABNORMAL) Comprehensive metabolic panel (11/05/2024 7:06 AM EST) Glucose, Plasma 94 74 - 99 mg/dL 11/05/2024 10:18 AM EST [facility] BUN, Plasma 6(L) 7 - 21 mg/dL 11/05/2024 10:18 AM [facility] Creatinine, Plasma 0.62 0.60 - 1.10 mg/dL 11/05/2024 10:18 AM [facility] BUN/Creatinine Ratio 10 11/05/2024 10:18 AM [facility] Sodium, Plasma 138 136 - 145 mmol/L 11/05/2024 10:18 AM [facility] Potassium, Plasma 4.1 3.6 - 4.9 mmol/L 11/05/2024 10:18 AM [facility] Chloride, Plasma 105 97 - 107 mmol/L 11/05/2024 10:18 AM [facility] CO2, Plasma 21(L) 22 - 29 mmol/L 11/05/2024 10:18 AM [facility] Anion Gap 12 6 - 16 mmol/L 11/05/2024 10:18 AM [facility] Total Calcium, Plasma 9.0 8.9 - 10.2 mg/dL 11/05/2024 10:18 AM [facility] Total Protein 6.7 6.3 - 7.9 g/dL 11/05/2024 10:18 AM [facility] Albumin, Plasma 4.0 3.5 - 5.2 g/dL 11/05/2024 10:18 AM [facility] AST, Plasma 18 10 - 35 U/L 11/05/2024 10:18 AM [facility] ALT, Plasma 8(L) 10 - 35 U/L 11/05/2024 10:18 AM [facility] Alkaline Phosphatase, Plasma 69 35 - 104 U/L 11/05/2024 10:18 AM [facility] Total Bilirubin, Plasma 0.5 0.2 - 1.1 mg/dL 11/05/2024 10:18 AM [facility] eGFRcr 114.2 mL/min/1.7 3m*2 11/05/2024 10:18 AM [facility] Comment:Reported eGFRcr in m L/min/1.73m2 is based the CKD-EPI 2020 equation that does not use a race coefficient. Blood Venous blood specimen / Unknown Venipuncture / Unknown 11/05/2024 7:06 AM EST 11/05/2024 8:13 AM EST us Sabrina Avila MD LAB BLOOD ORDERABLES Fi nal Result [facility] [address] [place] [address] * (ABNORMAL) Serum Drug Screen (11/05/2024 7:06 AM EST) 9 Carboxy THC 20(H) <5 ng/mL 11/07/2024 5:49 PM EST [facility] Alprazolam <5 <5 ng/mL 11/07/2024 5:49 PM EST [facility] Amphetamine <10 <10 ng/mL 11/07/2024 5:49 PM EST [facility] Benzolyecgonine <20 <20 ng/mL 5:49 PM EST [facility] Buprenorphine <1 <1 ng/mL 11/07/2024 5:49 PM EST [facility] Butalbital <50 <50 ng/mL 11/07/2024 5:49 PM EST [facility] Clonazepam <5 <5 ng/mL 11/07/2024 5:49 PM EST [facility] Codeine <5 <5 ng/mL 11/07/2024 5:49 PM EST [facility] Diazepam <5 <5 ng/mL 11/07/2024 5:49 PM EST [facility] Fentanyl <1 <1 ng/mL 11/07/2024 5:49 PM EST [facility] Hydrocodone <2 <2 ng/mL 11/07/2024 5:49 PM EST [facility] Hydromorphone <5 <5 ng/mL 11/07/2024 5:49 PM EST [facility] Lorazepam <5 <5 ng/mL 11/07/2024 5:49 PM EST [facility] MDA <10 <10 ng/mL 11/07/2024 5:49 PM EST [facility] MDMA <10 <10 ng/mL 11/07/2024 5:49 PM EST [facility] Meperidine <5 <5 ng/mL 11/07/2024 5:49 PM EST [facility] Methadone <10 <10 ng/mL 11/07/2024 5:49 PM EST [facility] Methadone Metabolite <10 <10 ng/mL 10/17 5:49 PM EST [facility] Methamphetamine <10 <10 ng/mL 5:49 PM EST [facility] Midazolam <5 <5 ng/mL 11/07/2024 5:49 PM EST [facility] Morphine <2 <2 ng/mL 11/07/2024 5:49 PM EST [facility] Norbuprenorphine <5 <5 ng/mL 11/07/19 5:49 PM EST [facility] Nordiazepam <10 <10 ng/mL 11/07/2024 5:49 PM EST [facility] Oxazepam <5 <5 ng/mL 11/07/2024 5:49 PM EST [facility] Oxycodone <2 <2 ng/mL 11/07/2024 5:49 PM EST [facility] Oxymorphone <2 <2 ng/mL 11/07/2024 5:49 PM EST [facility] Phenobarbital <50 <50 ng/mL 11/07/2024 5:49 PM EST [facility] Temazepam <5 <5 ng/mL 11/07/2024 5:49 PM EST [facility] Tramadol <20 <20 ng/mL 11/07/2024 5:49 PM EST [facility] Blood Venous blood specimen / Unknown Venipuncture / Unknown 11/05/2024 7:06 AM EST 11/05/2024 8:17 AM EST [facility] - 11/07/2024 5:49 PM EST Test performed by LC-MS/MS at the [facility]. This test was developed and its performance characteristics determined by [facility]. It has not been cleared or approved by the FDA. The laboratory is regulated under CLIA as qualified to perform high-complexity testing. This test is used for clinical purposes. us Sabrina Avila MD LAB BLOOD ORDERABLES Fi nal Result [facility] [address] [place] [address] * (ABNORMAL) CBC and Differential (11/05/2024 7:06 AM EST) [facility] Signature WBC Count 9.20 3.70 - 10.30 10*3/uL LAB HEMATOLOGY METHOD 11/05/2024 9:45 AM EST [facility] RBC Count 4.53 3.90 - 5.20 10*6/uL LAB HEMATOLOGY METHOD 11/05/2024 9:45 AM EST [facility] HGB 13.3 11.2 - 15.7 g/dL LAB HEMATOLOGY METHOD 11/05/2024 9:45 AM EST [facility] HCT 40.6 34.0 - 45.0 % LAB HEMATOLOGY METHOD 11/05/2024 9:45 AM EST [facility] Platelet Count 233 155 - 369 10*3/uL LAB HEMATOLOGY METHOD 11/05/2024 9:45 AM EST [facility] MCV 90 79 - 98 fL LAB HEMATOLOGY METHOD 11/05/2024 9:45 AM EST [facility] MCH 29.4 26.0 - 32.0 pg LAB HEMATOLOGY METHOD 11/05/2024 9:45 AM EST [facility] MCHC 32.8 30.7 - 35.5 g/dL LAB HEMATOLOGY METHOD 11/05/2024 9:45 AM EST [facility] RDW 12.6 11.5 - 14.5 % LAB HEMATOLOGY METHOD 11/05/2024 9:45 AM EST [facility] MPV 12.0 8.8 - 12.5 fL LAB HEMATOLOGY METHOD 11/05/2024 9:45 AM EST [facility] nRBC 0.0 <=0.0 per 100 WBCs LAB HEMATOLOGY METHOD 11/05/2024 9:45 AM EST [facility] Differential Type Automated LAB HEMATOLOGY METHOD 11/05/2024 9:45 AM EST [facility] Neutrophils % 80 % LAB HEMATOLOGY METHOD 11/05/2024 9:45 AM EST [facility] Lymphocytes % 14 % LAB HEMATOLOGY METHOD 11/05/2024 9:45 AM EST [facility] Monocytes % 5 % LAB HEMATOLOGY METHOD 11/05/2024 9:45 AM EST [facility] Eosinophils % 1 % LAB HEMATOLOGY METHOD 11/05/2024 9:45 AM EST [facility] Basophils % 0 % LAB HEMATOLOGY METHOD 11/05/2024 9:45 AM EST [facility] Immature Granulocytes % 0 % LAB HEMATOLOGY METHOD 11/05/2024 9:45 AM EST [facility] Neutrophils Absolute 7.35(H) 1.60 - 6.10 10*3/uL LAB HEMATOLOGY METHOD 11/05/2024 9:45 AM EST [facility] Lymphocytes Absolute 1.24 1.20 - 3.90 10*3/uL LAB HEMATOLOGY METHOD 11/05/2024 9:45 AM EST [facility] Monocytes Absolute 0.48 0.30 - 0.90 10*3/uL LAB HEMATOLOGY METHOD 11/05/2024 9:45 AM EST [facility] Eosinophils Absolute 0.07 0.00 - 0.50 10*3/uL LAB HEMATOLOGY METHOD 11/05/2024 9:45 AM EST [facility] Basophils Absolute 0.03 0.00 - 0.10 10*3/uL LAB HEMATOLOGY METHOD 11/05/2024 9:45 AM EST [facility] Immature Granulocytes Absolute 0.03 0.00 - 0.06 10*3/uL LAB HEMATOLOGY METHOD 11/05/2024 9:45 AM EST [facility] Blood Venous blood specimen / Unknown Venipuncture / Unknown 11/05/2024 7:06 AM EST 11/05/2024 7:52 AM EST Narrative [facility]ALTH[facility]ARE [facility] - 11/05/2024 9:45 AM EST Therapeutic decision making should be based on absolute values, rather than percentages. us Sabrina Avila MD LAB BLOOD ORDERABLES Fi nal Result Performing Organization Address City/[facility]/ZIP Co de Phone Number [facility] [address] [place] [address] * Hepatitis B Surface Antigen - [facility] (11/05/2024 7:06 AM EST) Hepatitis B Surf Antigen Negative Negative 11/05/2024 12:15 PM EST [facility] Blood Venous blood specimen / Unknown Venipuncture / Unknown 11/05/2024 7:06 AM EST 11/05/2024 8:18 AM EST us Sabrina Avila MD LAB BLOOD ORDERABLES Fi nal Result Performing Organization Address City/[facility]/ZIP Co de Phone Number [facility] [address] [place] [address] * Hepatitis C Antibody with Reflex to HCV Quant PCR - ES (11/05/2024 7:06 AM EST) Hepatitis C Antibody Negative Negative 11/05/2024 10:10 AM EST [facility] Blood Venous blood specimen / Unknown Venipuncture / Unknown 11/05/2024 7:06 AM EST 11/05/2024 8:16 AM EST us Sabrina Avila MD LAB BLOOD ORDERABLES Fi nal Result [facility] [address] [place] [address] documented in this encounter Visit Diagnoses Diagnosis Routine general medical examination at a health care facility documented in this encounter Additional Health Concerns Infection Onset Date Last Indicated Resolved Time COVID-19 Rule-Out 12/29/2024 12/29/2024 12/29/2024 11:14 AM EDT documented as of this encounter Care Teams Cryptographic Vulnerability Analyst Relationship Specialty Start Date End Date Frederick Craft MD [address] [place] [id number] PCP - General 01/26/21 documented as of this encounter
--- OUTSIDE RECORDS SUMMARY | 2025-05-18 09:50 | XMS_ITS | Clinical Summary ---
Author Organization [facility] Address [address] [place] [address] Care Team Providers Care Room Service Associate Name Role Phone Frederick Craft MD Primary Care Provider +1- [phone] Family History Medical History Relation Name Comments Graves' disease Brother Graves' disease Father Neuropathy Father Hypertension Mother Migraines Mother Osteoarthritis Mother Relation Name Status Comments Brother Father Mother Social History Tobacco Use Types Packs/Day Years Used Date Smoking Tobacco: Never Alcohol Use Standard Drinks/Week Comments No 0 (1 standard drink = 0.6 oz pur e alcohol) Comments Unknown Sex and Gender Information Value Date Recorded Sex Assigned at Not on file Legal Sex Female 6:51 PM EDT Gender Identity Not on file Sexual Orientation Not on file Last Filed Vital Signs Vital Sign Reading Time Taken Comments Blood Pressure 133/89 12/29/2024 1:21 PM EDT Pulse 89 12/29/2024 1:21 PM EDT Temperature 36.5 C (97.7 F) 12/29/2024 9:37 AM EDT Respiratory Rate 16 12/29/2024 1:21 PM EDT Oxygen Saturation 98% 12/29/2024 1:21 PM EDT Inhaled Oxygen Concentration - - Weight 93.3 kg (205 lb 11 oz) 12/29/2024 9:38 AM EDT Height 165.1 cm (5' 5 ) 12/29/2024 9:38 AM EDT Body Mass Index 34.23 12/29/2024 9:38 AM EDT Plan of Treatment Health Maintenance Due Date Last Done Comments [facility]-Depression Screening 1982 [facility]-Hepatitis C Screening 1982 [facility]-/Child/Adol SDOH Screenings 1982 [facility]-Obesity Intervention 1988 [facility]-Varicella Vaccines (1 of 2 - 13+ 2-dose series) 1995 [facility]-DTaP,Tdap,and Td Vaccine s (2 - Tdap) 11/17/1996 11/16/1996 [facility]- SDOH Screenings 2000 [facility]-Adult SDOH Screenings 2000 [facility]-Hepatitis B Vaccines (1 of 3 - 19+ 3-dose series) 2001 [facility]-Pap Smear 2003 HPV Vaccines (1 - 3-dose SCD M series) 2009 [facility]-Cervical Cancer Screening 2012 [facility]-HPV/Cotest 2012 DSO-PTIOV-00 Vaccine (1 - 20 24-25 season) 2024 [facility]-Influenza Vaccine (#1) 2025 [facility]-Zoster Vaccines (1 of 2) 2032 [facility]-HIV Screening Completed 11/05/2024 [facility]-HIB Vaccines Aged Out No longer e ligible based on patient's age to complete this topic [facility]-Hepatitis A Vaccines Aged Out No longer eligible based on patient's age to complete this topic [facility]-IPV Vaccines Aged Out No longer e ligible based on patient's age to complete this topic [facility]-Pneumococcal Vaccine: Pediatrics (0 to 5 Years) and At-Risk Patients (6 to 49 Years) Aged Out No long er eligible based on patient's age to complete this topic [facility]-Rotavirus Vaccines Aged Out No lo nger eligible based on patient's age to complete this topic Procedures Procedure Name Priority Date/Time Associated Diagnosis Comments HIV 1/2 ANTIBODY/ANTIGEN SCREEN WITH REFLEX TO HIV I/II DIFFERENTIATION Routine 11/05/2024 7:06 AM EST Routine general medical examination at a health care facility from Last 3 Months or Most Recently Relevant to Health Maintenance Results * HIV 1 & 2 Antibody/Antigen Screen (11/05/2024 7:06 AM EST) HIV 1 & 2 Antibody/Antigen Screen Non Reactive Non Reactive 11/05/2024 10:14 AM EST [facility] Comment:Screening for HIV 1 & 2 antibodies, and P24 antigen is NONREACTIVE. No confirmatory testing is required. Blood Venous blood specimen / Unknown Venipuncture / Unknown 11/05/2024 7:06 AM EST 11/05/2024 8:16 AM EST Sabrina Avila MD LAB BLOOD ORDERABLES Fi nal Result [facility] [address] [place] [address] from Last 3 Months or Most Recently Relevant to Health Maintenance Insurance [facility] MED[facility] Care Teams Room Service Associate Relationship Specialty Start Date End Date Frederick Craft MD [address] [place] [id number] PCP - General 01/26/21
== END 2025-05-18 23:59 | disposition home or self-care (01) ==
LOC: RAD 09:36
PROVIDERS: PCP Physician Assistant; Visit Provider Physician Assistant
DX: M25.551 Pain in right hip (principal); M54.50 Low back pain, unspecified
CPT/HCPCS: 72110; 73502